=== PATIENT | male | born 1960 | race Caucasian/White ===

== ENCOUNTER → 2024-08-25 17:17 | Outpatient (REF) | payer MEDICARE, SELFPAY | LOC: RAD 17:17 | PROVIDERS: ATTENDING PHYSICIAN Nurse Practitioner Family | DX: M25.551 Pain in right hip (principal) | CPT/HCPCS: 72100; 73502 ==

== ENCOUNTER → 2024-09-25 06:32 | Outpatient (REF) | payer MEDICARE, SELFPAY | LOC: HWRAD 06:32 | PROVIDERS: ATTENDING PHYSICIAN Specialist; FAMILY PHYSICIAN Nurse Practitioner Family | DX: N18.31 Chronic kidney disease, stage 3a (principal) | CPT/HCPCS: 76775 ==

== ENCOUNTER → 2025-03-10 07:10 | Outpatient (REF) | payer MEDICARE, SELFPAY | LOC: HWRCS 07:10 | PROVIDERS: ATTENDING PHYSICIAN Internal Medicine Cardiovascular Disease; FAMILY PHYSICIAN Nurse Practitioner Family | DX: I48.92 Unspecified atrial flutter (principal); I48.0 Paroxysmal atrial fibrillation; E78.2 Mixed hyperlipidemia | CPT/HCPCS: 93306 ==

== ENCOUNTER → 2025-06-17 11:05 | Outpatient (REF) | payer MEDICARE, SELFPAY | LOC: HWRAD 11:05 | PROVIDERS: ATTENDING PHYSICIAN Nurse Practitioner Family | DX: M79.671 Pain in right foot (principal) | CPT/HCPCS: 73630 ==

== ENCOUNTER → 2025-08-26 11:20 | Outpatient (REF) | payer MEDICARE, SELFPAY | LOC: DHSLP 11:20 | PROVIDERS: ATTENDING PHYSICIAN Internal Medicine; FAMILY PHYSICIAN Nurse Practitioner Family | DX: G47.30 Sleep apnea, unspecified (principal); R06.83 Snoring | CPT/HCPCS: 95800 ==